=== PATIENT | male | born 1975 | race Caucasian/White ===

== ENCOUNTER 2016-07-18 19:02 | Emergency (ER) | payer BC ==
[2016-07-18 19:40] LABS: COLOR YELLOW; LEUKOCYTE ESTERASE,URINE NEGATIVE (NEGATIVE); NITRITE,URINE NEGATIVE (NEGATIVE)
[2016-07-18 19:54] LABS: % IMMATURE GRANULYOCYTES 0.3 % (0.0-1.1); ABSOLUTE IMMATURE GRANULOCYTES 0.03 10^3/uL (0.00-0.10); ADD DIFF? NO; ADD MORPH? NO; ADD SCAN? NO; ATYPICAL LYMPHOCYTE FLAG 10 (0-99); FRAGMENT RBC FLAG 0 (0-99); HEMATOCRIT 48.7 % (40.0-51.0); HEMOGLOBIN 17.2 g/dL (13.7-17.5); LEFT SHIFT FLG 0 (0-99); LIPEMIA HEMOLYSIS FLAG 90 (0-99); MEAN CELL HEMOGLOBIN CONCENTR. 35.3 g/dL (32.4-36.7); MEAN CELL VOLUME 87.9 fL (81.5-99.8); MEAN PLATELET VOLUME 8.1 fL (8.7-11.7); PLATELET CLUMPS FLAG 0 (0-99); PLATELET COUNT 265 10^3/uL (150-400); RED BLOOD CELL COUNT 5.54 10^6/uL (4.40-6.38); RED CELL DISTRIBUTION WIDTH 11.5 % (11.5-15.2)
[2016-07-18 20:07] LABS: ALANINE AMINOTRANSFERASE 52 IU/L (21-72); ALBUMIN 4.4 g/dL (3.5-5.0); ALKALINE PHOSPHATASE 54 IU/L (38-126); ANION GAP 13 mEq/L (8-16); ASPARTATE AMINOTRANSFERASE 26 IU/L (17-59); BILIRUBIN,TOTAL 2.3 mg/dL (0.1-1.4); CALCIUM 9.6 mg/dL (8.5-10.4); CARBON DIOXIDE 27 mEq/l (22-31); CHLORIDE 100 mEq/L (97-110); CREATININE 1.1 mg/dL (0.7-1.3); GLOMERULAR FILTRATION RATE > 60; GLUCOSE 96 mg/dL (70-100); POTASSIUM 3.7 mEq/L (3.5-5.2); SODIUM 140 mEq/L (134-144); TOTAL PROTEIN 7.8 g/dL (6.3-8.2)
[2016-07-18] MEDS ORDERED: HYOSCYAMINE SULFATE 0.125 MG TAB PO ONE (20:13)
[2016-07-18 20:14] LABS: BILIRUBIN-CONJUGATED 0.4 mg/dL (0.0-0.5); BILIRUBIN-UNCONJUGATED 1.9 mg/dL (0.0-1.1)
--- NOTE | 2016-07-18 20:16 | UCPHY ---
H & P Patient Type: Established Chief Complaint Nursing Narrative: Pt. states luq to left flank pain x1 wk. states increased in pain today. denies fever/chills,n/v/d. C/O bloating. Pt. had stool today aprox 1200-thick in consistency. denies black or bloody. HPI/ROS: This patient reports crampy discomfort to the left upper more than left lower quadrant was belly over the past week waxing waning intensity currently 3 or / 10. He suspects the symptoms are attributable to eating gluten. Explains that he had similar pains 2 years ago attributed to gluten which he started using again because he likes it. He had a colonoscopy at that time was unremarkable per his report that do not have access to the study. He reports that the ache says pressure has been there constantly but has weaned to minimal discomfort at times and peak did /10. There is some correlation with timing of eating but no other exacerbating factors are noted. ROS: No fevers. No other constitutional symptoms HEENT: Negative pulmonary: No cough shortness of breath pleuritic pain cardiovascular: Negative. : No testicular pain or swelling. No urinary symptoms. 7 point ROS is otherwise negative. Source: Patient Exam Limitations: No limitations - Medical/Surgical History PMH: Otherwise healthy Hx Asthma: No Hx Chronic Respiratory Disease: No Hx Diabetes: No Hx Cardiac Disease: No Hx Renal Disease: No Hx Cirrhosis: No Hx Alcoholism: No Hx HIV/AIDS: No Hx Splenectomy or Spleen Trauma: No Other PMH: Depression. Surg-0. Achilles tendon - Family History Significant Family History: No pertinent family hx - Social History Smoking Status: Never smoked Alcohol Use: Occasionally Drug Use: None - Physical Exam Exam: General Appearance: Alert, no distress. Eyes: Pupils equal and round no pallor or injection. ENT, Mouth: Mucous membranes moist. Respiratory: There are no retractions, lungs are clear to auscultation. Cardiovascular: Regular rate and rhythm. Gastrointestinal: Normoactive, soft, minimal left upper quadrant tenderness. No splenomegaly. No other organomegaly. No significant lower belly tenderness. No guarding or rebound. : No testicular tenderness. Back: No CVA tenderness Neurological: Alert with no focal deficits Skin: Warm and dry, no rashes. Extremities are symmetrical, full range of motion. Psychiatric: Mood and affect are normal DIFFERENTIAL DIAGNOSIS: After history and physical exam differential diagnosis was considered for food intolerance, mesenteric adenitis, diverticulitis the, constipation Constitutional: Initial Vital Signs Temperature (C) 36.7 C 07/18/16 19:21 Heart Rate 80 07/18/16 19:21 Respiratory Rate 16 07/18/16 19:21 Blood Pressure 152/97 H 07/18/16 19:21 O2 Sat (%) 97 07/18/16 19:21 O2 Delivery Mode Room Air Allergies/Adverse Reactions: Sulfa (Sulfonamide Antibiotics) Allergy (Unknown, Verified 07/18/16 19:21) Home Medications: Medication Instructions Recorded HYOSCYAMINE SULFATE [LEVSIN-SL] 0.125 - 0.25 mg SL Q6 PRN #20 07/18/16 tab.subl Medical Decision Making ED Course/Re-evaluation: CBC is normal. LFTs normal. Urinalysis unremarkable Discussion: Given benign finding suspect this patient does have a food intolerance-to gluten counseled regarding this. Follow up with Gastroenterology for any ongoing symptoms Go to the emergency department for any worsening symptoms. History with Levsin with partial improvement while in the clinic. - Data Points Laboratory Results: Laboratory Results 07/18/16 19:48 07/18/16 19:48 07/18/16 07/18/16 19:48 19:35 WBC 9.42 10^3/uL (3.80-9.50) RBC 5.54 10^6/uL (4.40-6.38) Hgb 17.2 g/dL (13.7-17.5) Hct 48.7 % (40.0-51.0) MCV 87.9 fL (81.5-99.8) MCH 31.0 pg (27.9-34.1) MCHC 35.3 g/dL (32.4-36.7) RDW 11.5 % (11.5-15.2) Plt Count 265 10^3/uL (150-400) MPV 8.1 L fL (8.7-11.7) Neut % (Auto) 52.1 % (39.3-74.2) Lymph % (Auto) 36.9 % (15.0-45.0) [place] % (Auto) 8.2 % (4.5-13.0) Eos % (Auto) 1.8 % (0.6-7.6) Baso % (Auto) 0.7 % (0.3-1.7) Nucleat RBC Rel Count 0.0 % (0.0-0.2) Absolute Neuts (auto) 4.90 10^3/uL (1.70-6.50) Absolute Lymphs (auto) 3.48 H 10^3/uL (1.00-3.00) Absolute Monos (auto) 0.77 10^3/uL (0.30-0.80) Absolute Eos (auto) 0.17 10^3/uL (0.03-0.40) Absolute Basos (auto) 0.07 10^3/uL (0.02-0.10) Absolute Nucleated RBC 0.00 10^3/uL (0-0.01) Immature Gran % 0.3 % (0.0-1.1) Immature Gran # 0.03 10^3/uL (0.00-0.10) Sodium 140 mEq/L (134-144) Potassium 3.7 mEq/L (3.5-5.2) Chloride 100 mEq/L (97-110) Carbon Dioxide 27 mEq/l (22-31) Anion Gap 13 mEq/L (8-16) BUN 20 mg/dL (7-23) Creatinine 1.1 mg/dL (0.7-1.3) Estimated GFR > 60 Glucose 96 mg/dL (70-100) Calcium 9.6 mg/dL (8.5-10.4) Total Bilirubin 2.3 H mg/dL (0.1-1.4) Conjugated Bilirubin 0.4 mg/dL (0.0-0.5) Unconjugated Bilirubin 1.9 H mg/dL (0.0-1.1) AST 26 IU/L (17-59) ALT 52 IU/L (21-72) Alkaline Phosphatase 54 IU/L (38-126) Total Protein 7.8 g/dL (6.3-8.2) Albumin 4.4 g/dL (3.5-5.0) Urine Color YELLOW Urine Appearance CLEAR Urine pH 6.0 (5.0-7.5) Ur Specific [place] 1.020 (1.002-1.030) Urine Protein NEGATIVE (NEGATIVE) Urine Ketones NEGATIVE (NEGATIVE) Urine Blood NEGATIVE (NEGATIVE) Urine Nitrate NEGATIVE (NEGATIVE) Urine Bilirubin NEGATIVE (NEGATIVE) Urine Urobilinogen 0.2 EU (0.2-1.0) Ur Leukocyte Esterase NEGATIVE (NEGATIVE) Urine Glucose NEGATIVE (NEGATIVE) Medications Given: Discontinued Medications Hyoscyamine Sulfate (Levsin, Hyomax-Sl) 0.25 mg PO EDNOW ONE Stop: 07/18/16 20:14 Last Admin: 07/18/16 20:16 Dose: 0.25 mg Departure - Departure Disposition: Home, Routine, Self-Care Clinical Impression: Generalized abdominal cramping Condition: Good Instructions: Gas and Bloating (ED) Additional Instructions: Diagnosis: Crampy generalized abdominal pain Plan: Avoid gluten Levsin if needed for cramps Follow up with her primary care physician for any ongoing symptoms Also, consider follow-up with gastroenterology again if your symptoms are not improving with the treatment plan. Referrals: Corona Hogue [Primary Care Provider] - As per Instructions Prescriptions: HYOSCYAMINE SULFATE [LEVSIN-SL] 0.125 - 0.25 mg SL Q6 PRN #20 tab.subl PRN Reason: Abdominal cramping - PQRS PQRS Measurement: NA
[2016-07-18 20:20] VITALS: BP 139/71; PULSE 82; RESP 18; TEMP 98.6; O2SAT 96
== END 2016-07-18 20:27 | disposition home or self-care (01) ==
LOC: CED 19:02
DX: R10.9 Unspecified abdominal pain (principal)
CPT/HCPCS: 80053-PO; 81003-PO; 82248-PO; 85025-PO; 99214-PO; G0463-PO

== ENCOUNTER → 2016-07-20 | Outpatient (CLI) | payer BC ==
--- NOTE | 2016-07-20 19:05 | DX ---
Abdomen, Three Views, Includes One-View Chest and Two-View Abdomen HISTORY: Left upper quadrant pain. FINDINGS CHEST: The heart size is within normal limits. The pulmonary vascularity appears normal. The lungs are clear. No evidence for a pleural effusion or pneumothorax. ABDOMEN: A mild amount of stool is seen in the colon. There is a nonobstructive bowel gas pattern. No evidence for organomegaly or abnormal abdominal calcification. Mild degenerative change is seen in the lumbar spine. IMPRESSION: No evidence for acute cardiopulmonary abnormality. Nonobstructive bowel gas pattern.
== END ==
LOC: CIMAGING 17:02
PROVIDERS: ATTEND Family Medicine
DX: R10.12 Left upper quadrant pain (principal)
CPT/HCPCS: 74022-PO

== ENCOUNTER 2018-03-21 10:06 | Emergency (ER) | payer BC ==
[2018-03-21 10:31] LABS: PLATELET COUNT 254 10^3/uL (150-400)
--- NOTE | 2018-03-21 10:40 | EDPHY ---
HPI/HX/ROS/PE/MDM Narrative: CHIEF COMPLAINT: Chest pain HISTORY OF PRESENT ILLNESS: This patient is a 42 year-old male complaining of chest pain and left arm pain. About two weeks ago, he began noticing chest discomfort. It is fairly constant, sharp, and localized to the left costal margin just under nipple line. He endorses tenderness in this area. He also notes discomfort in his left shoulder and upper arm. His discomfort became worse on Wednesday. He denies associated shortness of breath, increased pain with deep inspiration, or nausea. No palpitations, no syncope, no exertional increase in pain. No clear exacerbating factors except perhaps stress. Not worsened with excersice. He has never had similar pain in the past. Denies any unusual activities or known muscle strains. Denies history of hyperlipidemia, hypertension, diabetes. He is a nonsmoker. Denies family history of early CAD. No personal or family history of clotting disorders. Presents today as his was concerned regarding his symptoms. Denies cough, cold, rhinorrhea. No fever, chills, shortness of breath , palpitations, vomiting, diarrhea, urinary complaints, headache. REVIEW OF SYSTEMS: A comprehensive 10 system review of systems is otherwise negative aside from elements mentioned in the history of present illness and medical decision making. PAST MEDICAL HISTORY: Depression. SOCIAL HISTORY: . Employed. Does not abuse tobacco, alcohol, or illicit drugs. PCP Dr. Hogue. VITAL SIGNS: Reviewed by me GENERAL: Well-developed, well-nourished, resting comfortably in no respiratory distress. HEENT: Atraumatic. Eyes: No icterus, no injection. Mouth: moist mucous membranes. No erythema or lesions. Neck: supple with no adenopathy. LUNGS: Clear to auscultation bilaterally, no wheezes, rhonchi or rales. CARDIAC: Tenderness at left costal margin underneath nipple line. Regular rate and rhythm, no rubs, murmurs or gallops. ABDOMEN: Soft, nontender, nondistended, bowel sounds normal. BACK: No CVA tenderness. EXTREMITIES: No trauma. No edema. Range of motion is normal throughout. NEURO: Alert and oriented, grossly nonfocal. SKIN: Warm and dry, no rash. PSYCHIATRIC: Normal mentation, no agitation. Portions of this note were transcribed by a medical insurance coding specialist. I personally performed a history, physical exam, medical decision making, and confirmed accuracy of information the transcribed note. ED Course: 42 y/o male presents with left-sided chest pain and left arm pain. He has tenderness at the left costal margin underneath the nipple line on exam. Plan for EKG, chest x-ray, labs including CBC, chemistries, troponin, d-dimer. 12-LEAD EKG: Please see the full report in [facility]. My interpretation: Normal sinus rhythm 10:43 POC troponin 0.01. Ddimer neg. HEART SCORE: History: 0 EK Age: 0 Risk Factors: 0 Troponin: 0 Discussed evaluation with patient. He now reports some discomfort in his left neck. Discussed HEART score of 0-1. Patient comfortable with plan for 4 hr repeat EKG, repeat trop as patient now reports change of pain with some neck pain. Pain essentially consistent for 1-2 weeks, normal EKG and negative troponin. 12:25 Spoke with cardiology, Carrie. [place] not likely to be anginal given chronicity and normal eval thus far. Repeat troponin at 4 hours 0.00. Patient had received toradol with minimal effect. Will DC with short course prednisone to treat potential costrochonditis as patient does have tenderness along costal margin. Will dc with instructions regarding atypical chest pain, pain meds as needed, close follow up for stress testing. MDM: After history and physical examination, the differential for chest pain was considered, including but not limited to, myocardial ischemia, acute coronary syndrome, pulmonary embolus, chest wall pain, GI causes, pleural inflammation and pulmonary infectious causes. - Data Points Imaging Results: Impression: Poor inspiratory effort. Question minimal bronchitis. Dictated By: Ky Burgess MD Imaging: I viewed and interpreted images myself Laboratory Results: Laboratory Results 03/21/18 10:25 03/21/18 10:25 Medications Given: Discontinued Medications Ketorolac Tromethamine (Toradol) 30 mg IVP EDNOW ONE Stop: 03/21/18 12:29 Last Admin: 03/21/18 12:40 Dose: 30 mg Point of Care Test Results: Chemistry 03/21/18 03/21/18 14:37 10:26 POC Troponin I 0.00 ng/mL ng/mL 0.01 ng/mL ng/mL (0.00-0.08) (0.00-0.08) General Time Seen by Provider: 03/21/18 10:13 Initial Vital Signs: Initial Vital Signs Temperature (C) 36.9 C 03/21/18 10:12 Heart Rate 75 03/21/18 10:12 Respiratory Rate 16 03/21/18 10:12 Blood Pressure 147/89 H 03/21/18 10:12 O2 Sat (%) 98 03/21/18 10:12 O2 Delivery Mode Room Air Allergies/Adverse Reactions: Sulfa (Sulfonamide Antibiotics) Allergy (Unknown, Verified 07/18/16 19:21) Home Medications: Medication Instructions Recorded HYOSCYAMINE SULFATE [LEVSIN-SL] 0.125 - 0.25 mg SL Q6 PRN #20 07/18/16 tab.subl Hydrocodone/APAP 5/325 [[place] 1 tab PO Q6H PRN #10 tab 03/21/18 5/325 (RX)] predniSONE 40 mg PO DAILY #6 tab 03/21/18 Departure - Departure Disposition: Home, Routine, Self-Care Clinical Impression: Chest pain Qualifiers: Chest pain type: unspecified Qualified Code(s): R07.9 - Chest pain, unspecified Condition: Good Instructions: Hydrocodone/Acetaminophen (By mouth), Prednisone (By mouth), Chest Pain (ED), Costochondritis (ED) Additional Instructions: Please follow up with [facility] within the next 2-3 days for further testing. This may include a stress test or echocardiogram. Okay to take ibuprofen or Tylenol as needed for chest discomfort. You have also been given prescription of Vicodin as needed for severe pain. You have also been given a prescription of prednisone to use as directed for any costochondritis. Please follow up without fail. Referrals: NONE *PRIMARY CARE P,. [Primary Care Provider] - As per Instructions Sandra Gibson MD [Medical Doctor] - 1-2 days without fail (Call for follow-up appointment. Be sure they are aware that this is an emergency department follow -up visit. Let them know that we discussed your case with the rn lpn lvn on- call and you need to be seen for urgent risk stratification.) Prescriptions: Hydrocodone/APAP 5/325 [[place] 5/325 (RX)] 1 tab PO Q6H PRN #10 tab PRN Reason: Pain predniSONE 40 mg PO DAILY #6 tab Report Scribed for: Love Christianson Report Scribed by: Jackie Domínguez Date of Report: 03/21/18 Time of Report: 12:34
[2018-03-21] MEDS ORDERED: KETOROLAC 30 MG/1 ML SDV IVP ONE (12:28)
[2018-03-21 15:16] VITALS: BP 111/70
--- NOTE | 2018-03-21 15:54 | CPEKG ---
Test Reason : OPEN Blood Pressure : / mmHG Vent. Rate : 076 BPM Atrial Rate : 075 BPM P-R Int : 163 ms QRS Dur : 088 ms QT Int : 372 ms P-R-T Axes : -01 -26 008 degrees QTc Int : 419 ms Sinus rhythm Left ventricular hypertrophy Confirmed by Love Christianson ([id number]) on 03/21/2018 3:54:18 PM Referred By: Confirmed By:Love Christianson
== END 2018-03-21 15:18 | disposition home or self-care (01) ==
DX: R07.89 Other chest pain (principal); M79.622 Pain in left upper arm
CPT/HCPCS: 84484-PO; 96374; J1885